=== PATIENT | female | born 1960 | race African-American/Black ===

== ENCOUNTER → 2020-05-11 13:19 | Outpatient (CLI) | payer OTHER, SELFPAY ==
--- NOTE | ~2020-05-11 | MM_ITS ---
EXAMINATION: MM screening [facility] BI w mike HISTORY: Screening TECHNIQUE: Craniocaudal and mediolateral oblique 3-D tomosynthesis images were obtained and synthetic 2-D images were generated. CAD analysis was submitted and interpreted. COMPARISON: Comparison to multiple prior studies sequentially, with oldest reviewed study dated 02/12. BREAST PARENCHYMAL COMPOSITION: The breasts are heterogeneously dense, which may obscure small masses . FINDINGS: There are benign breast calcifications. There is no evidence of suspicious mass, calcificat ion, or architectural distortion to suggest malignancy in either breast. There has been no suspicious interval change. IMPRESSION: 1. No mammographic evidence of malignancy. 2. Recommend routine screening mammography in one year. BI-RADS Category 2: Benign finding(s). Reviewed, dictated and finalized at location A. H MANAGER
== END ==
PROVIDERS: PCP Internal Medicine; Visit Provider Internal Medicine
DX: Z12.31 Encounter for screening mammogram for malignant neoplasm of breast (principal)
CPT/HCPCS: 77063; 77067

== ENCOUNTER → 2021-05-31 10:53 | Outpatient (CLI) | payer OTHER, SELFPAY ==
--- NOTE | ~2021-05-31 | MM_ITS ---
EXAMINATION: MM screening [facility] BI w mike HISTORY: Screening TECHNIQUE: Craniocaudal and mediolateral oblique 3-D tomosynthesis images were obtained and synthetic 2-D images were generated. CAD analysis was submitted and interpreted. COMPARISON: Comparison to multiple prior studies sequentially, with oldest reviewed study dated 02/13. BREAST PARENCHYMAL COMPOSITION: There are scattered areas of fibroglandular density. FINDINGS: There are developing asymmetries in the left breast. The right breast is stable without antonio dence for malignancy. IMPRESSION: 1. Developing left breast asymmetries. 2. Additional mammographic views and possible breast ultrasound are recommended. BI-RADS Category 0: Incomplete: Needs additional imaging evaluation. Reviewed, dictated and finalized at location A. N RESOURCE OFFICER IMPRESSION: 1. Developing left breast asymmetries. 2. Additional mammographic views and possible breast ultrasound are recommended . BI-RADS Category 0: Incomplete: Needs additional imaging evaluation.
== END ==
PROVIDERS: Visit Provider Internal Medicine
DX: Z12.31 Encounter for screening mammogram for malignant neoplasm of breast (principal); R92.8 Other abnormal and inconclusive findings on diagnostic imaging of breast
CPT/HCPCS: 77063; 77067

== ENCOUNTER → 2021-06-17 08:43 | Outpatient (CLI) | payer OTHER, SELFPAY ==
--- NOTE | ~2021-06-17 | US_ITS ---
US breast LT complete 06/17/2021 10:09 Indication: Left breast asymmetries on previous mammogram. Procedure: High-resolution complete left breast ultrasound including all 4 quadrants in the retroareo lar location. Comparison: Program dated 06/17/2021 Findings: There is a small complicated cyst measuring 3 mm 1:00, 6 cm from the nipple. No other discr ete masses are identified. No sonographic evidence for malignancy. Impression: 1: No sonographic evidence for malignancy in the left breast. Benign findings. Routine yearly screening mammogram and regular clinical breast examination are recommended. BI-RADS CATEGORY 2 - BENIGN FINDINGS Reviewed, dictated and finalized at location A. STANT ELEMENTARY TEACHER Impression: 1: No sonographic evidence for malignancy in the left breast. Benign findings. Routine yearly screening mammogram and regular clinical breast examination are recommended. BI-RADS CATEGORY 2 - BENIGN FINDINGS
--- NOTE | ~2021-06-17 | MM_ITS ---
EXAMINATION: MM diagnostic [facility] LT w mike HISTORY: Follow-up left breast asymmetries TECHNIQUE: Additional 3-D tomosynthesis images of the left breast were performed and synthetic 2-D im ages were generated. CAD analysis was submitted and interpreted. COMPARISON: Comparison to multiple prior studies sequentially, with oldest reviewed study dated 06/2016. BREAST PARENCHYMAL COMPOSITION: The breasts are heterogenously dense, which may obscure small masses FINDINGS: The areas of asymmetry are less apparent with spot compression views. Given the density of the breast, left whole breast ultrasound is recommended. IMPRESSION: 1. Breast asymmetries less apparent with spot compression views. 2. Complete left breast ultrasound recommended. BI-RADS Category 0: Incomplete: Needs additional imaging evaluation. Reviewed, dictated and finalized at location A. SPECIALIST
== END ==
PROVIDERS: PCP Internal Medicine; Visit Provider Internal Medicine
DX: R92.8 Other abnormal and inconclusive findings on diagnostic imaging of breast (principal)
CPT/HCPCS: 76641; 77061; 77065; G0279

== ENCOUNTER → 2022-09-05 07:08 | Outpatient (CLI) | payer OTHER, SELFPAY ==
--- NOTE | ~2022-09-05 | MM_ITS ---
EXAMINATION: MM screening [facility] BI w mike HISTORY: Screening mammogram TECHNIQUE: Craniocaudal and mediolateral oblique 3-D tomosynthesis images were obtained and synthetic 2-D images were generated. CAD analysis was submitted and interpreted. COMPARISON: June 17, 2021 diagnostic left mammogram and complete left breast ultrasound May 31, 2021, May 11, 2020, April 17, 2019 bilateral screening mammogram examinations BREAST PARENCHYMAL COMPOSITION: There are scattered areas of fibroglandular density. FINDINGS: Scattered occasional benign calcifications. There is no evidence of suspicious mass, calcif ication, or architectural distortion to suggest malignancy in either breast. There has been no suspic ious interval change. IMPRESSION: 1. No mammographic evidence of malignancy. 2. Recommend routine screening mammography in one year. BI-RADS Category 2: Benign finding(s). Reviewed, dictated and finalized at location A.
== END ==
PROVIDERS: PCP Internal Medicine; Visit Provider Internal Medicine
DX: Z12.31 Encounter for screening mammogram for malignant neoplasm of breast (principal)
CPT/HCPCS: 77063; 77067

== ENCOUNTER 2023-09-27 07:22 | Outpatient (CLI) | payer OTHER, SELFPAY ==
--- NOTE | ~2023-09-27 | MM_ITS ---
EXAMINATION: MM screening [facility] BI w mike HISTORY: Screening mammogram TECHNIQUE: Craniocaudal and mediolateral oblique 3-D tomosynthesis images were obtained and synthetic 2-D images were generated. CAD analysis was submitted and interpreted. COMPARISON: September 05, 2022 bilateral screening mammogram June 17, 2021 diagnostic left mammogram and incomplete left breast ultrasound examination May 31, 2021 bilateral screening mammogram BREAST PARENCHYMAL COMPOSITION: There are scattered areas of fibroglandular density. FINDINGS: There is no evidence of suspicious mass, calcification, or architectural distortion to sugg est malignancy in either breast. There has been no suspicious interval change. IMPRESSION: 1. No mammographic evidence of malignancy. 2. Recommend routine screening mammography in one year. BI-RADS Category 1: Negative Reviewed, dictated and finalized at location B.
== END 2023-09-27 07:23 ==
LOC: MICIMG 07:25
PROVIDERS: PCP Internal Medicine; Visit Provider Internal Medicine
DX: Z12.31 Encounter for screening mammogram for malignant neoplasm of breast (principal)
CPT/HCPCS: 77063; 77067

== ENCOUNTER 2024-11-03 07:10 | Outpatient (CLI) | payer OTHER, SELFPAY ==
--- NOTE | ~2024-11-03 | MM_ITS ---
EXAMINATION: MM screening [facility] BI w mike HISTORY: Screening mammogram, family history of breast cancer in her sister. TECHNIQUE: Craniocaudal and mediolateral oblique 3-D tomosynthesis images were obtained and synthetic 2-D images were generated. CAD analysis was submitted and interpreted. COMPARISON: 09/27/2023, 09/05/2022, 05/31/2021, 05/11/2020 BREAST PARENCHYMAL COMPOSITION:Not Dense. There are scattered areas of fibroglandular density. FINDINGS: No suspicious mass, calcification, or architectural distortion are identified in either dwight ast to suggest malignancy. There has been no suspicious interval change. IMPRESSION: No mammographic evidence of malignancy. Recommend routine screening mammography in one year. BI-RADS Category 1: Negative Reviewed, dictated and finalized at location .
== END 2024-11-03 07:11 | disposition home or self-care (01) ==
LOC: MICIMG 07:11
PROVIDERS: PCP Internal Medicine; Visit Provider Internal Medicine
DX: Z12.31 Encounter for screening mammogram for malignant neoplasm of breast (principal)
CPT/HCPCS: 77063; 77067